=== PATIENT | female | born 1975 | race Caucasian/White ===

== ENCOUNTER 2021-03-18 18:01 | Inpatient (IN) | payer OTHER ==
[~2021-03-18] VITALS: Ht 167.6 cm; Wt 70.8 kg
[2021-03-18] MEDS ORDERED: GABAPENTIN400 MG PO (20:43)
[2021-03-18] MEDS ORDERED: OMEPRAZOLE40 MG PO (20:44)
[2021-03-18] MEDS ORDERED: VALSARTAN-HCTZ1 EAC3 PO (20:44)
[2021-03-18] MEDS ORDERED: GLUCOPHAGE 500500 MG PO (20:45)
[2021-03-18] MEDS ORDERED: TIZANIDINE HCL4 MG PO (20:46)
[2021-03-18] MEDS ORDERED: PROTONIX 40 MG40 M1 PO (20:46)
[2021-03-18 21:31] LABS: HEMOGLOBIN 12.8 gm/dl (12.3-15.3); RED BLOOD COUNT 4.13 M/UL (4.00-5.10); WHITE BLOOD COUNT 8.2 K/UL (4.5-11.0)
[2021-03-18 21:57] LABS: BUN/CREATININE RATIO 25 (0-10)
[2021-03-19 06:06] LABS: RED BLOOD COUNT 3.93 M/UL (4.00-5.10)
[2021-03-19] MEDS ORDERED: ACETAMINOPHEN500 MG PO (13:54)
[2021-03-19] MEDS ORDERED: BISOPROLOL-HCT1 EAC2 PO (13:56)
[2021-03-19] MEDS ORDERED: PREMARIN0.9 MG PO (13:57)
[2021-03-19] MEDS ORDERED: PHENERGAN 25 MG25 M1 PO (13:58)
[2021-03-19] MEDS ORDERED: LANTUS SOL100 UNIT/1 SQ (14:01)
[2021-03-19] MEDS ORDERED: GLUCOTROL5 MG PO (14:02)
[2021-03-19] MEDS ORDERED: DICYCLOMINE HCL10 MG PO (14:03)
[2021-03-19] MEDS ORDERED: ATORVASTATIN CA40 MG PO (20:44)
[2021-03-19] MEDS ORDERED: CATAPRES 0.1MG0.1 MG PO (20:45)
[2021-03-22 02:38] LABS: HEMOGLOBIN 10.1 gm/dl (12.3-15.3); WHITE BLOOD COUNT 7.3 K/UL (4.5-11.0)
[2021-03-22 03:10] LABS: RED BLOOD COUNT 3.35 M/UL (4.00-5.10)
[2021-03-26 16:14] LABS: HLA B 27 DISEASE ASSOCIATION Negative (.)
== END 2021-03-22 13:00 | disposition home or self-care (01) | DRG 682 ==
LOC: PROG CARE 20:19 → CCU 20:19 → PROG CARE 03-20 20:04
PROVIDERS: Internal Medicine; Internal Medicine Nephrology; ADMIT Internal Medicine
PROC: 8E0ZXY6 Isolation (ICD-10-PCS; principal; 2021-03-18)
DX: N17.9 Acute kidney failure, unspecified (principal); U07.1 COVID-19; J12.82 Pneumonia due to coronavirus disease 2019; E87.1 Hypo-osmolality and hyponatremia; E87.3 Alkalosis; I10 Essential (primary) hypertension; R74.01 Elevation of levels of liver transaminase levels; G89.29 Other chronic pain; E11.65 Type 2 diabetes mellitus with hyperglycemia; M54.5 Low back pain; Z96.698 Presence of other orthopedic joint implants; M46.1 Sacroiliitis, not elsewhere classified; K59.00 Constipation, unspecified; T38.0X5A Adverse effect of glucocorticoids and synthetic analogues, initial encounter; E78.5 Hyperlipidemia, unspecified; E87.6 Hypokalemia; F17.210 Nicotine dependence, cigarettes, uncomplicated; K21.9 Gastro-esophageal reflux disease without esophagitis; E86.0 Dehydration; Z90.49 Acquired absence of other specified parts of digestive tract; Z90.710 Acquired absence of both cervix and uterus; Z88.6 Allergy status to analgesic agent; Z79.4 Long term (current) use of insulin
CPT/HCPCS: 36415; 71045; 72100; 72202; 80048; 80053; 80069; 81001; 81374; 82009; 82436; 82550; 82553; 82570; 82803; 82947; 82962; 83036; 83735; 84100; 84133; 84300; 84484; 85025; 85027; 85652; 86038; 86140; 86430; 86431; 87040; 89050; J0696; J1644; J2270; J3475; J7030